=== PATIENT | female | born 1950 | race Caucasian/White ===

== ENCOUNTER → 2016-07-12 | Outpatient (CLI) | payer BC ==
[2016-07-12 09:41] LABS: CREATININE, serum 0.7 mg/dL (0.52-1.25)
== END ==
LOC: COL.LAB 09:00
PROVIDERS: Otolaryngology
DX: H93.A1 Pulsatile tinnitus, right ear (principal)

== ENCOUNTER → 2016-10-15 | Outpatient (CLI) | payer BC | LOC: COL.RAD 07:30 | DX: D35.2 Benign neoplasm of pituitary gland (principal); E89.3 Postprocedural hypopituitarism; L98.8 Other specified disorders of the skin and subcutaneous tissue; I67.82 Cerebral ischemia | CPT/HCPCS: A9585 ==

== ENCOUNTER → 2018-02-11 | Outpatient (CLI) | payer BC, MEDICARE | LOC: ZCOL.LAB 14:02 | DX: H92.11 Otorrhea, right ear (principal) ==

== ENCOUNTER → 2018-06-26 | Outpatient (CLI) | payer MEDICARE | LOC: ZCOL.LAB 17:52 → COL.LAB 17:52 | DX: H92.11 Otorrhea, right ear (principal) ==

== ENCOUNTER → 2018-07-22 | Outpatient (CLI) | payer MEDICARE, OTHER | LOC: ZCOL.LAB 15:47 | DX: H92.11 Otorrhea, right ear (principal) ==